=== PATIENT | male | born 1975 | race Caucasian/White ===

== ENCOUNTER 2022-01-05 02:17 | Emergency (ER) | payer SELFPAY ==
[2022-01-05 02:24] VITALS: BP 139/90; PULSE 51; RESP 16; TEMP 36.4; O2SAT 95; BMI 28.7
--- NOTE | 2022-01-05 02:25 | ED_ITS ---
HPI - Eye Problem General: Chief complaint: Eye Problems Stated complaint: eyes sore Time Seen by Provider: 01/05/22 02:21 Source: patient Mode of arrival: ambulatory Limitations: no limitations History of Present Illness: 46-year-old male who states that he woke up tonight with bilateral dry eyes and eye pain. He denies any change in vision denies any drainage. 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 He did not think that he had had any mishra. States pain is sharp in nature rates it a 5 out of 10 worse with bright lights improved with dark lights. Associated symptoms: Denies fever(s), headache(s), nausea, neck pain or vomiting Review of Systems Const: Denies: fever(s), chills, body aches or change in appetite Eyes: Reports: eye discomfort and eye redness ENMT: Denies: throat pain or dental pain Card: Denies: chest pain Resp: Denies: dyspnea GI: Denies: abdominal pain, nausea, vomiting or diarrhea : Denies: dysuria Musc: Denies: neck pain or back pain Skin/Breast: Denies: rash Neuro: Denies: headache(s) Psych: Denies: depression Piotr/Lymph: Denies: easy bruising All/Imm: Denies: urticaria Physical Exam Const: COMMON NORMALS: no acute distress, patient oriented x3 and healthy appearing HENMT: COMMON NORMALS: normocephalic and atraumatic HEAD & SCALP: normocephalic and atraumatic Eye: COMMON NORMALS: Equal, round and reactive pupils present and EOMs intact bilaterally PUPIL: Yes Equal, round and reactive pupils present OTHER: Mild keratitis bilateral eyes Neck/C-Spine: COMMON NORMALS: full ROM and supple Chest: COMMONS NORMALS: normal inspection of the chest Resp: COMMON NORMALS: normal respiratory effort Cardio: COMMON NORMALS: regular rate and No murmurs present (Cardio) RATE: regular rate GI: INSPECTION: Yes normal to inspection Extremity: COMMON NORMALS: normal to inspection and full ROM Neuro: COMMON NORMALS: patient oriented x3 and moves all extremities Psych: COMMON NORMALS: mental status grossly normal, Normal thought process present and cooperative THOUGHT PROCESS: Normal thought process present Skin: COMMON NORMALS: no rashes or lesions noted and no wounds GENERAL SKIN EXAM: no rashes or lesions noted MDM - Eye Problem Medical Decision Making Patient presents here with likely Welders burn keratitis to both eyes it is mild in nature he has no visual deficits we will treat with pain meds he is stable for discharge is to follow-up with PCP and return if worsening. He understands agrees to plan. Discharge Plan Discharge Patient Disposition: Home Clinical Impression: Welders' keratitis of both eyes Condition: Stable Prescriptions: New naproxen [Naprosyn] 500 mg tablet 500 mg PO BID PRN (Reason: pain) Qty: 20 0RF Discharge Orders: Discharge ED (Routine); Ordered 01/05/22 Ordered By: Erasto Smith Discharge Diet: Advance as tolerated Discharge Activity: Resume usual activity Patient Instructions: Keratitis (ED) Coding Level of Care Code ED [employer] for Duane Lamb
[2022-01-05] MEDS: naproxen 500 mg Tablet PO (02:29)
== END 2022-01-05 02:39 | disposition home or self-care (01) ==
PROVIDERS: Emergency Provider Emergency Medicine
DX: H16.133 Photokeratitis, bilateral (principal)
CPT/HCPCS: 99283